=== PATIENT | male | born 1980 | race African-American/Black ===

== ENCOUNTER 2020-02-16 07:54 | Emergency (ER) | payer MEDICAID ==
[~2020-02-16] VITALS: Ht 175.3 cm; Wt 84.0 kg
[2020-02-16] MEDS ORDERED: IBUPROFEN 600MG TABLET PO STA (09:27)
[2020-02-16 10:25] LABS: BASOPHILS % 0.3 % (0.0-2.0); HEMOGLOBIN. 14.4 g/dL (14.0-18.0); LYMPHOCYTES % 15.7 % (20.0-50.0); MEAN CORPUSCULAR HEMOGLOBIN 30.2 pg (28.0-32.0); MEAN CORPUSCULAR VOLUME 88.1 fL (80.0-94.0); MEAN PLATELET VOLUME 7.8 fl (7.4-10.4); PLATELET 275 x1000/uL (130-400); RED BLOOD CELL COUNT 4.77 mill/uL (4.7-6.1); RED CELL DISTRIBUTION WIDTH 14.4 % (11.6-14.6)
[2020-02-16 10:32] LABS: CHLORIDE 104 mEq/L (98-107)
[2020-02-16 11:15] VITALS: BP 110/68
== END 2020-02-16 11:44 | disposition home or self-care (01) ==
LOC: ER 07:54
DX: R42 Dizziness and giddiness (principal); R10.10 Upper abdominal pain, unspecified; Z88.0 Allergy status to penicillin
CPT/HCPCS: 36415; 71045; 80048; 85025; 99285